=== PATIENT | female | born 1965 | race American Indian/Alaskan Native ===

== ENCOUNTER 2020-08-12 14:44 | Emergency (ER) | payer MEDICAID ==
--- NOTE | 2020-08-12 15:56 | Event Note ---
ED Screening Note ED Screening Note: pt presents for left back pain radiating down the left arm states she also has CP and SOB states it worsened in the last two days states she had these symptoms originally in September 2019 and went to [facility] at that time no cough no fever no n/v/d PMHx heart murmur no allergies to meds no recent travel no sick contacts no recent surgery no hormone use This initial assessment/diagnostic orders/clinical plan/treatment(s) is/are subject to change based on patients health status, clinical progression and re- assessment by fellow clinical providers in the ED. Further treatment and workup at subsequent clinical providers discretion. Patient/guardian urged not to elope from the ED as their condition may be serious if not clinically assessed and managed. Initial orders include: labs, EKG, CXR
--- NOTE | 2020-08-12 16:26 | XRay Report ---
CHEST 2 VIEWS INDICATION / CLINICAL INFORMATION: Chest Pain. COMPARISON: None available. FINDINGS: SUPPORT DEVICES: None. HEART / MEDIASTINUM: No significant abnormality. LUNGS / PLEURA: No significant pulmonary or pleural abnormality. No pneumothorax. ADDITIONAL FINDINGS: No significant additional findings. IMPRESSION: 1. No acute findings. Signer Name: Titus Mandujano MD Signed: 08/12/2020 4:22 PM Workstation Name: [id number]
[2020-08-12 16:29] LABS: Basophils % (Auto) 0.6 % (0.0-1.8); Eosinophils % (Auto) 0.5 % (0.0-4.3); Hematocrit 37.8 % (30.3-42.9); Hemoglobin 12.8 gm/dl (10.1-14.3); Lymphocytes # (Auto) 2.4 K/mm3 (1.2-5.4); Lymphocytes % (Auto) 31.9 % (13.4-35.0); Mean Corpuscular HGB Conc 34 % (30-34); Mean Corpuscular Volume 101 fl (79-97); Monocytes # (Auto) 0.5 K/mm3 (0.0-0.8); Monocytes % (Auto) 6.9 % (0.0-7.3); Platelet Count 211 K/mm3 (140-440); Red Blood Count 3.75 M/mm3 (3.65-5.03); Red Cell Distribution Width 14.3 % (13.2-15.2)
[2020-08-12 16:35] LABS: Alanine Aminotransferase 25 units/L (7-56); Blood Urea Nitrogen 10 mg/dL (7-17); Calcium 9.2 mg/dL (8.4-10.2); Hemolysis Index 19
[2020-08-12 16:37] LABS: BUN/Creatinine Ratio 14
[2020-08-12 21:40] VITALS: BP 133/80
[2020-08-12] MEDS ORDERED: KETOROLAC 30 MG/1 ML INJ IV ONE (21:48)
[2020-08-12] MEDS ORDERED: KETOROLAC 60 MG/2 ML INJ IM ONE (21:51)
[2020-08-12] MEDS ORDERED: IBUPROFEN 800 MG TAB PO ONE (21:56)
--- NOTE | 2020-08-12 21:56 | Emergency Department Report ---
ED Upper Extremity Inj HPI - General Chief Complaint: Extremity Injury, Upper Stated Complaint: lt side numbness Time Seen by Provider: 08/12/20 15:54 Source: patient Mode of arrival: Ambulatory Limitations: No Limitations - History of Present Illness Initial Comments: 55-year-old female with past medical history of "heart murmur" presents to the hospital complaints of pain at the left medial antecubital area for the past 3 days. Pain is aching, intermittent, worse with palpation and movement. Patient denies any injury or trauma and is right-hand dominant. Patient states she walks around her local school approximately 8 times on a daily basis for exercise. Today while doing this walk she had continued pain to this left medial elbow area that shot up to her shoulder and posterior upper thoracic area. The pain made her feel short of breath at that moment but was episodic and resolved quickly. Patient states pain was worse last night at this elbow area and she could not sleep. Patient denied any chest pressure, nausea, vomiting, diaphoresis, or fatigue. She also denies PE risk factors including hormone replacement therapy, recent travel, calf tenderness, or leg edema. She is a non-smoker but does have a family history of CAD. She has no known other cardiac risk factors. She denies having chest pressure or shortness of breath doing her daily exercise routine over the last several days. - Related Data Previous Rx's Medication Instructions Recorded Last Taken Type Ibuprofen [Motrin] 800 mg PO Q8HR PRN #20 tablet 08/12/20 Unknown Rx traMADoL [Ultram 50 MG tab] 50 mg PO Q6HR PRN #15 tablet 08/12/20 Unknown Rx Allergies Allergy/AdvReac Type Severity Reaction Status Date / Time No Known Allergies Allergy Unverified 08/12/20 14:50 ED Review of Systems ROS: Stated complaint: lt side numbness Other details as noted in HPI Comment: All other systems reviewed and negative ED Past Medical Hx - Past Medical History Previous Medical History?: Yes Additional medical history: heart murmur - Surgical History Past Surgical History?: No - Social History Smoking Status: Never Smoker - Medications Home Medications: Home Medications Medication Instructions Recorded Confirmed Last Taken Type Ibuprofen [Motrin] 800 mg PO Q8HR PRN #20 tablet 08/12/20 Unknown Rx traMADoL [Ultram 50 MG tab] 50 mg PO Q6HR PRN #15 tablet 08/12/20 Unknown Rx ED Physical Exam - General Limitations: No Limitations - Other Other exam information: General: No acute distress Head: Atraumatic Eyes: normal appearance ENT: Moist mucous membranes Neck: Normal appearance, no midline tenderness Chest: Clear to auscultation bilaterally CV: Regular rate and rhythm Abdomen: Soft, normal bowel sounds, nontender, nondistended, no rebound or guarding Back: Normal inspection Extremity: Patient has some tenderness with mild swelling at the medial antecubital area/medial epicondyle area. Patient does have pain with flexion of wrist against with palm upward resistance. No warmth, erythema, or rash. No tenderness or deformity to the shoulder or trapezius Neuro: Alert O x 3, no facial asymmetry, speech clear, no gross motor sensory deficit Psych: Appropriate behavior Skin: No rash ED Course Vital Signs 08/12/20 08/12/20 08/12/20 14:50 21:39 21:42 Temperature 97.8 F Pulse Rate 69 73 Respiratory 18 18 18 Rate Blood Pressure 149/78 Blood Pressure 133/80 [Right] O2 Sat by Pulse 100 98 98 Oximetry ED Medical Decision Making - Lab Data Result diagrams: 08/12/20 15:57 08/12/20 15:57 Lab Results 08/12/20 08/12/20 08/12/20 Range/Units 15:57 15:57 18:42 WBC 7.6 (4.5-11.0) K/mm3 RBC 3.75 (3.65-5.03) M/mm3 Hgb 12.8 (10.1-14.3) gm/dl Hct 37.8 (30.3-42.9) % MCV 101 H (79-97) fl MCH 34 H (28-32) pg MCHC 34 (30-34) % RDW 14.3 (13.2-15.2) % Plt Count 211 (140-440) K/mm3 Lymph % (Auto) 31.9 (13.4-35.0) % Ballard % (Auto) 6.9 (0.0-7.3) % Eos % (Auto) 0.5 (0.0-4.3) % Baso % (Auto) 0.6 (0.0-1.8) % Lymph # (Auto) 2.4 (1.2-5.4) K/mm3 Ballard # (Auto) 0.5 (0.0-0.8) K/mm3 Eos # (Auto) 0.0 (0.0-0.4) K/mm3 Baso # (Auto) 0.0 (0.0-0.1) K/mm3 Seg Neutrophils % 60.1 (40.0-70.0) % Seg Neutrophils # 4.6 (1.8-7.7) K/mm3 Sodium 142 (137-145) mmol/L Potassium 4.2 (3.6-5.0) mmol/L Chloride 108.4 H (98-107) mmol/L Carbon Dioxide 24 (22-30) mmol/L Anion Gap 14 mmol/L BUN 10 (7-17) mg/dL Creatinine 0.7 (0.6-1.2) mg/dL Estimated GFR > 60 ml/min BUN/Creatinine Ratio 14 % Glucose 96 (65-100) mg/dL Calcium 9.2 (8.4-10.2) mg/dL Total Bilirubin 0.30 (0.1-1.2) mg/dL AST 31 (5-40) units/L ALT 25 (7-56) units/L Alkaline Phosphatase 88 (35-129) units/L Troponin T < 0.010 < 0.010 (0.00-0.029) ng/mL Total Protein 6.3 (6.3-8.2) g/dL Albumin 4.0 (3.9-5) g/dL Albumin/Globulin Ratio 1.7 % - EKG Data -: EKG Interpreted by Ms EKG shows normal: sinus rhythm, ST-T waves (No STEMI) Rate: bradycardia - Radiology Data Radiology results: report reviewed Chest x-ray: No acute finding - Medical Decision Making 55-year-old female having pain at the medial epicondyle area of the left arm for several days and had a episode of shooting pain extending to the shoulder and upper thoracic area earlier today. Patient received cardiac/chest pain protocol after initial screening in the ED. Symptoms do sound cardiac in nature and patient has a low heart score, no DVT risk factors, and has reproducible tenderness at the medial epicondyle. Patient provided IM Toradol in ED for pain. Outpatient follow-up with orthopedic doctor recommended. Pt also noted to have mild BP elevation, outpatient f/u for pMD will be provided Critical Care Time: No Critical care attestation.: If time is entered above; I have spent that time in minutes in the direct care of this critically ill patient, excluding procedure time. ED Disposition Clinical Impression: Medial epicondylitis of elbow, Elevated blood pressure reading Disposition: TO HOME OR SELFCARE Is pt being admited?: No Condition: Stable Instructions: Golfer's Elbow, Preventing Hypertension Additional Instructions: Take the medication as prescribed. Follow-up with your doctor or doctor/clinic provided. Return if symptoms worsen as indicated by your discharge instructions. Prescriptions: Ibuprofen [Motrin] 800 mg PO Q8HR PRN #20 tablet PRN Reason: Pain, Moderate (4-6) traMADoL [Ultram 50 MG tab] 50 mg PO Q6HR PRN #15 tablet PRN Reason: Pain , Severe (7-10) Referrals: MENDOZA JACOBO MD [Staff Physician] - 3-5 Days (Primary care doctor) [facility] [Provider Group] - 3-5 Days (Primary care clinic) SALOMON PERLA MD [Staff Physician] - 3-5 Days (Orthopedic doctor) Time of Disposition: 22:05 Heart Score - HEART Score History: Slightly suspicious EKG: Normal Age: 45-65 Risk factors: 1-2 risk factors Troponin: < normal limit HEART Score: 2
== END 2020-08-12 22:14 | disposition home or self-care (01) ==
LOC: ED 14:44
DX: M77.02 Medial epicondylitis, left elbow (principal); R03.0 Elevated blood-pressure reading, without diagnosis of hypertension; Z79.1 Long term (current) use of non-steroidal anti-inflammatories (NSAID); Z79.899 Other long term (current) drug therapy
CPT/HCPCS: 36415; 71046; 80053; 84484; 85025; 93005; 96372; 99283; J1885

== ENCOUNTER 2021-05-10 09:06 | Emergency (ER) | payer MEDICAID ==
[2021-05-10] MEDS ORDERED: BUTALB/ACETAMINOPHEN/CAFFEINE TAB PO ONE (10:15)
[2021-05-10 10:44] VITALS: BP 130/78
--- NOTE | 2021-05-10 10:46 | XRay Report ---
CHEST 2 VIEWS INDICATION: cough, congestion. COMPARISON: 08/12/2020 FINDINGS: Support devices: None. Heart: Within normal limits. Lungs/pleura: No acute air space or interstitial disease. No pneumothorax. Additional findings: None. IMPRESSION: No acute findings. No change since 08/12/2020. Signer Name: Nikhil Rios Jr, MD Signed: 05/10/2021 10:42 AM Workstation Name: [id number]
--- NOTE | 2021-05-10 11:00 | Emergency Department Report ---
- General Chief Complaint: Upper Respiratory Infection Stated Complaint: COUGH/HEADACHE Time Seen by Provider: 05/10/21 10:07 Source: patient Mode of arrival: Ambulatory Limitations: No Limitations - History of Present Illness Initial Comments: Patient is a 56-year-old female presents emergency room complaints of a cough that began yesterday. She has associated rhinorrhea, watering eyes, congestion, shortness of breath, headache. She has not taken any medication for her symptoms. Denies any known sick contacts or recent travel. she has not been vaccinated for COVID-19. She has not been tested for COVID-19 since becoming sick. She denies any vomiting, diarrhea, fever, chest pain, pleuritic pain, leg swelling, hemoptysis. No allergies to medications. - Related Data Previous Rx's Medication Instructions Recorded Last Taken Type Ibuprofen [Motrin] 800 mg PO Q8HR PRN #20 tablet 08/12/20 Unknown Rx traMADoL [Ultram 50 MG tab] 50 mg PO Q6HR PRN #15 tablet 08/12/20 Unknown Rx Benzonatate [Tessalon Perles] 100 mg PO Q8HR PRN #10 capsule 05/10/21 Unknown Rx Fluticasone [Flonase] 1 spray NS QDAY #1 bottle 05/10/21 Unknown Rx Loratadine 10 mg PO DAILY #10 tablet 05/10/21 Unknown Rx guaiFENesin ER [Mucinex ER] 600 mg PO Q12H #14 tablet.er 05/10/21 Unknown Rx Allergies Allergy/AdvReac Type Severity Reaction Status Date / Time No Known Allergies Allergy Verified 05/10/21 09:30 ED Review of Systems ROS: Stated complaint: COUGH/HEADACHE Other details as noted in HPI Comment: All other systems reviewed and negative ED Past Medical Hx - Past Medical History Additional medical history: heart murmur - Surgical History Additional Surgical History: . right hand - Social History Smoking Status: Never Smoker Substance Use Type: None - Medications Home Medications: Home Medications Medication Instructions Recorded Confirmed Last Taken Type Ibuprofen [Motrin] 800 mg PO Q8HR PRN #20 tablet 08/12/20 Unknown Rx traMADoL [Ultram 50 MG tab] 50 mg PO Q6HR PRN #15 tablet 08/12/20 Unknown Rx Benzonatate [Tessalon Perles] 100 mg PO Q8HR PRN #10 capsule 05/10/21 Unknown Rx Fluticasone [Flonase] 1 spray NS QDAY #1 bottle 05/10/21 Unknown Rx Loratadine 10 mg PO DAILY #10 tablet 05/10/21 Unknown Rx guaiFENesin ER [Mucinex ER] 600 mg PO Q12H #14 tablet.er 05/10/21 Unknown Rx ED Physical Exam - General Limitations: No Limitations General appearance: alert, in no apparent distress - Head Head exam: Present: atraumatic, normocephalic - Eye Eye exam: Present: normal appearance. Absent: conjunctival injection - ENT ENT exam: Present: normal orophraynx, mucous membranes moist, TM's normal bilaterally, normal external ear exam, other (clear rhinorrhea bilaterally ) - Respiratory Respiratory exam: Present: normal lung sounds bilaterally. Absent: respiratory distress, wheezes, rales, rhonchi, stridor, chest wall tenderness, accessory muscle use, decreased breath sounds, prolonged expiratory - Cardiovascular Cardiovascular Exam: Present: regular rate, normal rhythm, normal heart sounds. Absent: systolic murmur, diastolic murmur, rubs, gallop - Neurological Exam Neurological exam: Present: alert, oriented X3 - Psychiatric Psychiatric exam: Present: normal affect, normal mood - Skin Skin exam: Present: warm, dry, intact ED Course Vital Signs 05/10/21 05/10/21 05/10/21 09:11 09:27 10:27 Temperature 97.7 F 98.1 F Pulse Rate 93 H 69 Respiratory 18 18 Rate Blood Pressure 138/77 136/78 O2 Sat by Pulse 99 98 98 Oximetry 05/10/21 05/10/21 10:39 10:42 Temperature 97.9 F Pulse Rate 76 Respiratory 16 16 Rate Blood Pressure 130/78 O2 Sat by Pulse 100 Oximetry ED Medical Decision Making - Radiology Data Radiology results: report reviewed Ordering Physician: MAYRA DEGROOT Date of Service: 05/10/21 Procedure(s): XR chest routine 2V Accession Number(s): [id number] cc: MAYRA DEGROOT Fluoro Time In Minutes: CHEST 2 VIEWS INDICATION: cough, congestion. COMPARISON: 08/12/2020 FINDINGS: Support devices: None. Heart: Within normal limits. Lungs/pleura: No acute air space or interstitial disease. No pneumothorax. Additional findings: None. IMPRESSION: No acute findings. No change since 08/12/2020. Signer Name: Nikhil Rios Jr, MD Signed: 05/10/2021 10:42 AM Workstation Name: [id number] Transcribed By: TTR Dictated By: NIKHIL RIOS JR, MD Electronically Authenticated By: NIKHIL RIOS JR, MD Signed Date/Time: 05/10/211041 DD/ 41 TD/TT: - Medical Decision Making Patient is a 56-year-old female presents emergency room complaints of a cough that began yesterday. She has associated rhinorrhea, watering eyes, congestion, shortness of breath, headache. She has not taken any medication for her symptoms. Denies any known sick contacts or recent travel. she has not been vaccinated for COVID-19. She has not been tested for COVID-19 since becoming sick. She denies any vomiting, diarrhea, fever, chest pain, pleuritic pain, leg swelling, hemoptysis. No allergies to medications. Vitals are stable. Breath sounds are clear bilaterally, no wheezing, no rales, no rhonchi. Chest x-ray: No acute findings. No change since 08/12/2020. Patient has no clinical signs of bacterial pneumonia or bacterial bronchitis at this time. Symptoms likely consistent with upper respiratory infection. Discussed supportive care and symptomatic treatment with patient. Patient given prescription for symptomatic relief. Patient presenting with the symptoms during COVID-19 pandemic, discussed the possibility of COVID-19 with patient, discussed return precautions, discussed outpatient testing, discussed self quarantine. Patient has no hypoxia, no signs of infiltrates on x-ray. Advised patient Please take medication as prescribed. Increase your fluid intake. May use a vaporizer. Follow-up with a primary care doctor. Return to emergency room for any new or worsening symptoms. Recommend for you to get outpatient COVID-19 testing and if positive to self quarantine for 10 days from onset of symptoms. Critical care attestation.: If time is entered above; I have spent that time in minutes in the direct care of this critically ill patient, excluding procedure time. ED Disposition Clinical Impression: Upper respiratory infection Qualifiers: URI type: unspecified URI Qualified Code(s): J06.9 - Acute upper respiratory infection, unspecified Disposition: HOME / SELF CARE / HOMELESS Is pt being admited?: No Does the pt Need Aspirin: No Condition: Stable Instructions: Viral Respiratory Infection Additional Instructions: Please take medication as prescribed. Increase your fluid intake. May use a vaporizer. Follow-up with a primary care doctor. Return to emergency room for any new or worsening symptoms. Recommend for you to get outpatient COVID-19 testing and if positive to self quarantine for 10 days from onset of symptoms. Prescriptions: Fluticasone [Flonase] 1 spray NS QDAY #1 bottle Loratadine 10 mg PO DAILY #10 tablet guaiFENesin ER [Mucinex ER] 600 mg PO Q12H #14 tablet.er Benzonatate [Tessalon Perles] 100 mg PO Q8HR PRN #10 capsule PRN Reason: cough Referrals: ALTA BEAVERS MD [Staff Physician] - 3-5 Days [facility] [Provider Group] - 3-5 Days BEN BRIGGS MD [Staff Physician] - 3-5 Days Time of Disposition: 10:58 Print Language: MACEDONIAN
== END 2021-05-10 11:17 | disposition home or self-care (01) ==
LOC: ED 09:06
DX: J06.9 Acute upper respiratory infection, unspecified (principal); R01.1 Cardiac murmur, unspecified; Z98.890 Other specified postprocedural states
CPT/HCPCS: 71046; 99283